=== PATIENT | female | born 1985 | race Asian ===

== ENCOUNTER 2016-10-21 04:35 | Inpatient (IN) | payer SELFPAY ==
[~2016-10-21] VITALS: Ht 157.5 cm; Wt 65.3 kg
[2016-10-21 04:50] VITALS: BP 101/56
[2016-10-21] MEDS ORDERED: LACTATED RINGERS 500 ML IV ONE (04:50)
[2016-10-21] MEDS ORDERED: CITRIC ACID/SODIUM CITRATE 30 ML UDC PO SCH (04:50)
[2016-10-21] MEDS ORDERED: LACTATED RINGERS 1,000 ML IV SCH (04:50)
[2016-10-21] MEDS ORDERED: ceFAZolin 1,000 MG VIAL ONE (06:40)
[2016-10-21] MEDS ORDERED: OXYTOCIN 10 UNITS/ML VIAL ONE (07:20)
[2016-10-21] MEDS ORDERED: BUPIVACAINE-MPF 0.75% 10 ML VIAL INJ ONE (07:20)
[2016-10-21] MEDS ORDERED: MIDAZOLAM 2 MG/2 ML VIAL ONE (07:27)
[2016-10-21] MEDS ORDERED: MORPHINE PRES FREE 10 MG/10 ML AMP IV ONE (07:28)
[2016-10-21] MEDS ORDERED: OXYTOCIN 20 UNITS/LR PREMIX 1,000 ML IV SCH (07:42)
[2016-10-21] MEDS ORDERED: METHYLERGONOVINE 0.2 MG/ML AMP IM PRN (07:45)
[2016-10-21] MEDS ORDERED: HYDROcodone/APAP 5/325 MG 1 TAB TAB PO PRN (07:45)
[2016-10-21] MEDS ORDERED: TEMAZEPAM 15 MG CAP PO PRN (07:45)
[2016-10-21] MEDS ORDERED: oxyCODONE/APAP 5/325 MG 1 TAB TAB PO PRN (07:45)
[2016-10-21] MEDS ORDERED: MEASLES, MUMPS, AND RUBELLA 1 VIAL SQVAC PRN (07:45)
[2016-10-21] MEDS ORDERED: TRIMETHOBENZAMIDE 200 MG/2 ML SYR IM PRN (07:45)
--- NOTE | 2016-10-21 08:00 | NUR ---
STANDBY C- SECTION 8/9 AR ADEQUATE NO ILL EFFECTS NOTED
[2016-10-21] MEDS ORDERED: MEPERIDINE 25 MG/ML SYR IVP PRN (08:05)
[2016-10-21] MEDS ORDERED: diphenhydrAMINE 50 MG/ML VIAL IVP PRN ×2 (08:05)
[2016-10-21] MEDS ORDERED: NALBUPHINE 10 MG/ML AMP IVP PRN (08:05)
[2016-10-21] MEDS ORDERED: HYDROmorphone 1 MG/ML AMP IVP PRN (08:05)
[2016-10-21] MEDS ORDERED: ONDANSETRON 4 MG/2 ML VIAL IVP PRN ×2 (08:05)
[2016-10-21] MEDS ORDERED: NALOXONE 0.4 MG/ML VIAL IVP PRN ×3 (08:05)
[2016-10-21] MEDS ORDERED: diphenhydrAMINE 50 MG/ML VIAL ONE (09:00)
[2016-10-21] MEDS: SIMETHICONE 80 MG TAB.CHEW PO SCH (09:00)
--- NOTE | 2016-10-21 09:00 | NUR ---
PATIENT HAS BEEN SCREENED AND CATEGORIZED LOW NUTRITION RISK. PATIENT WILL BE SEEN WITHIN 7 DAYS OF ADMISSION. 10/27/[address]
[2016-10-21] MEDS ORDERED: ONDANSETRON 4 MG/2 ML VIAL ONE (09:01)
[2016-10-21] MEDS ORDERED: OXYTOCIN 20 UNITS/LR PREMIX 1,000 ML IV ONE (09:22)
[2016-10-21] MEDS ORDERED: KETOROLAC 30 MG/ML VIAL IM/IVP SCH (12:00)
[2016-10-21] MEDS: OXYTOCIN 20 UNITS/LR PREMIX 1,000 ML IV SCH ×2 (13:05→20:35)
[2016-10-22] MEDS ORDERED: PRENATAL VITAMI1 TA2 PO (02:14)
[2016-10-22] MEDS: OXYTOCIN 20 UNITS/LR PREMIX 1,000 ML IV SCH (04:46)
[2016-10-22] MEDS: IBUPROFEN 800 MG TAB PO PRN (09:37)
[2016-10-22] MEDS: SIMETHICONE 80 MG TAB.CHEW PO SCH ×3 (13:01→21:36)
[2016-10-22] MEDS: DOCUSATE SOD/SENNA 50/8.6 MG 1 TAB PO SCH (21:33)
[2016-10-23] MEDS: SIMETHICONE 80 MG TAB.CHEW PO SCH ×3 (09:53→21:33)
[2016-10-23] MEDS: IBUPROFEN 800 MG TAB PO PRN (09:53)
[2016-10-23] MEDS ORDERED: MAGNESIUM HYDROXIDE 2400 MG/30 ML UDC PO PRN (10:20)
[2016-10-24] MEDS: IBUPROFEN 800 MG TAB PO PRN (09:13)
[2016-10-24] MEDS: SIMETHICONE 80 MG TAB.CHEW PO SCH ×4 (09:13→20:49)
[2016-10-24] MEDS: DOCUSATE SOD/SENNA 50/8.6 MG 1 TAB PO SCH (20:48)
== END 2016-10-24 21:55 | disposition home or self-care (01) | DRG 766 ==
LOC: MLD 04:35 → MFCC 09:10
PROVIDERS: ADMIT Obstetrics & Gynecology; ATTEND Obstetrics & Gynecology
PROC: 10D00Z1 Extraction of Products of Conception, Low, Open Approach (ICD-10-PCS; principal; 2016-10-21 07:30)
DX: O34.211 Maternal care for low transverse scar from previous cesarean delivery (principal); O82 Encounter for cesarean delivery without indication; Z53.8 Procedure and treatment not carried out for other reasons; N73.6 Female pelvic peritoneal adhesions (postinfective); Z37.0 Single live birth; Z3A.39 39 weeks gestation of pregnancy